=== PATIENT | female | born 1980 | race Caucasian/White ===

== ENCOUNTER 2023-05-05 09:03 | Emergency (ER) | payer BC, OTHER ==
[2023-05-05 09:44] VITALS: BP 107/59; PULSE 87; RESP 17; TEMP 98.7; BMI 23.9
[2023-05-05] MEDS ORDERED: LIDOCAINE 4% PATCH TP ONE ×2 (11:10→11:29)
[2023-05-05] MEDS ORDERED: ACETAMINOPHEN 325 MG TABLET (FP) PO ONE (11:11)
[2023-05-05] MEDS ORDERED: ACETAMINOPHEN 500 MG TABLET (FP) ONE (11:30)
[2023-05-05 12:04] LABS: EPI CELLS 22 /uL (0-25.1); HYALINE CASTS 1 /uL (0-3.1); PH,URINE 5.5 (5.0-8.0); URINE APPEARANCE CLEAR; URINE BACTERIA 57 /uL (0-1359); URINE BILIRUBIN NEGATIVE (NEGATIVE); URINE COLOR YELLOW; URINE GLUCOSE (UA) NEGATIVE (NEGATIVE); URINE KETONE NEGATIVE (NEGATIVE); URINE LEUK ESTERASE NEGATIVE (NEGATIVE); URINE NITRITE NEGATIVE (NEGATIVE); URINE PROTEIN NEGATIVE (NEGATIVE); URINE RBC 11 /uL (0-23.9); URINE UROBILINOGEN 0.2 mg/dL (0.2-1.0); URINE WBC 6 /uL (0-25.8)
[2023-05-05] MEDS ORDERED: KETOROLAC TROMETHAMINE 15 MG/ML VIAL IM ONE (12:33)
== END 2023-05-05 12:45 | disposition home or self-care (01) ==
LOC: JERFT 09:03
DX: M54.50 Low back pain, unspecified (principal); R35.0 Frequency of micturition
CPT/HCPCS: 81003; 84703; 87086; 99283-25

== ENCOUNTER 2023-10-27 03:13 | Emergency (ER) | payer BC ==
[2023-10-27 03:17] VITALS: BP 95/58; PULSE 77; RESP 18; TEMP 98.7; BMI 22.4
[2023-10-27] MEDS ORDERED: ACETAMINOPHEN INJECTION 100 ML IVPB ONE (04:05)
[2023-10-27] MEDS ORDERED: FAMOTIDINE 20 MG/50 ML IVPB 20 MG/50 ML MG IVPB ONE ×2 (04:05→04:06)
[2023-10-27] MEDS ORDERED: MAG HYDROX/AL HYDROX/SIMETH 30 ML UNIT-DOSE CUP ONE (04:06)
[2023-10-27] MEDS: ACETAMINOPHEN 1000 MG/100 ML BAG IVPB ONE (04:23)
[2023-10-27] MEDS: MAG HYDROX/AL HYDROX/SIMETH 30 ML UNIT-DOSE CUP PO ONE (04:23)
[2023-10-27] MEDS: FAMOTIDINE 20 MG/50 ML IVPB 20 MG/50 ML MG IVPB ONE (04:26)
[2023-10-27 04:40] LABS: INR 1.06 (0.83-1.09); PROTHROMBIN TIME (PATIENT) 12.3 SEC (9.7-13.0)
[2023-10-27 04:43] LABS: ACTIVATED PTT 32.6 SECONDS (25.2-36.5)
[2023-10-27 04:45] LABS: POTASSIUM 3.9 mmol/L (3.5-5.1)
[2023-10-27 04:47] LABS: CALCIUM 8.5 mg/dL (8.5-10.1)
[2023-10-27 04:48] LABS: ALBUMIN 3.8 g/dl (3.4-5.0); BLOOD UREA NITROGEN 13.5 mg/dL (7-18); MAGNESIUM 2.3 mg/dL (1.8-2.4)
[2023-10-27 04:50] LABS: CREATININE 0.7 mg/dL (0.55-1.3)
[2023-10-27 04:52] LABS: BILIRUBIN,TOTAL 0.4 mg/dL (0.2-1); TOT PROT 7.1 g/dl (6.4-8.2)
[2023-10-27 04:54] LABS: BASO % 0.8 % (0-2.0); EOS % 1.2 % (0-4.5); HEMATOCRIT 38.1 % (32.4-45.2); HEMOGLOBIN 12.9 GM/dL (10.7-15.3); LYMPH % 18.8 % (8-40); MCH 30.8 pg (25.7-33.7); MCHC 33.9 g/dl (32.0-36.0); MEAN CELL VOLUME 90.9 fl (80-96); MEAN PLT VOLUME 8.1 fl (7.5-11.1); MONO % 6.4 % (3.8-10.2); NEUT % 72.8 % (42.8-82.8); PLATELET COUNT 245 10^3/uL (134-434); RBC 4.19 M/mm3 (3.60-5.2); RDW 13.4 % (11.6-15.6); WHITE BLOOD COUNT 7.9 K/mm3 (4.0-10.0)
== END 2023-10-27 06:18 | disposition home or self-care (01) ==
LOC: JER 03:13
PROC: 3E033GC Introduction of Other Therapeutic Substance into Peripheral Vein, Percutaneous Approach (ICD-10-PCS; principal; 2023-10-27)
PROC: 3E033NZ Introduction of Analgesics, Hypnotics, Sedatives into Peripheral Vein, Percutaneous Approach (ICD-10-PCS; 2023-10-27)
DX: R10.13 Epigastric pain (principal); R10.11 Right upper quadrant pain; R11.0 Nausea; R61 Generalized hyperhidrosis; K29.70 Gastritis, unspecified, without bleeding
CPT/HCPCS: 36415; 71046-TC-FY; 80053; 83690; 83735; 84100; 84484; 84703; 85025; 85610; 85730; 93005; 93010; 99285-25; J0131